=== PATIENT | female | born 1970 | race Caucasian/White ===

== ENCOUNTER 2021-11-24 09:23 | Emergency (ER) | payer MEDICAID ==
[~2021-11-24] VITALS: Ht 170.2 cm; Wt 96.8 kg
[~2021-11-24 09:23] MED LIST: FURO40TA4; INSU100V11 SQ; INSU100V9 SQ; METF-1203 PO; METO50TA16 PO; PANT40TA54 PO; POTA-207 PO; SPIR50TA5 PO
[2021-11-24 10:06] LABS: BASOPHILS % (AUTO) 0.8 % (0-1); EOSINOPHILS # (AUTO) 0.4 X10'3 (0-0.9); EOSINOPHILS % (AUTO) 7.2 % (0-6); HEMATOCRIT 35.6 % (35.0-45.0); HEMOGLOBIN 12.1 g/dl (12.0-16.0); LYMPHOCYTES # (AUTO) 1.1 X10'3 (1.1-4.8); LYMPHOCYTES % (AUTO) 18.4 % (21-51); MEAN CORPUSCULAR HEMOGLOBIN 34.8 PG (27.0-31.0); MEAN CORPUSCULAR VOLUME 102.4 FL (78-98); MEAN PLATELET VOLUME 9.1 FL (7.4-10.4); MONOCYTES # (AUTO) 0.9 X10'3 (0-0.9); MONOCYTES % (AUTO) 14.7 % (2-12); NEUTROPHILS # (AUTO) 3.6 X10'3 (1.8-7.7); NEUTROPHILS % (AUTO) 58.9 % (42-75); PLATELET COUNT 79 X10'3 (140-440); RED BLOOD COUNT 3.47 X10'6 (4.20-5.60)
[2021-11-24 10:26] LABS: ALANINE AMINOTRANSFERASE 55 U/L (12-78); ALBUMIN 2.1 G/DL (3.4-5.0); ALBUMIN/GLOBULIN RATIO 0.4 (1.1-1.5); ALKALINE PHOSPHATASE 168 IU/L (46-116); ANION GAP 10 (8-16); ASPARTATE AMINO TRANSFERASE 48 U/L (10-37); BILIRUBIN,TOTAL 2.8 MG/DL (0.1-1.0); BLOOD UREA NITROGEN 15 MG/DL (7-18); BUN/CREATININE RATIO 12.4 (6.6-38.0); CALCIUM 8.6 MG/DL (8.5-10.1); CHLORIDE 101 MMOL/L (99-107); CREATININE 1.21 MG/DL (0.40-0.90); LIPASE 486 U/L (73-393); POTASSIUM 5.1 MMOL/L (3.5-5.1); SODIUM 130 MMOL/L (135-145); TOTAL CARBON DIOXIDE 19.5 MMOL/L (24-32); TOTAL PROTEIN 7.7 G/DL (6.4-8.2); eGFR 47 ML/MIN
[2021-11-24 10:30] LABS: GLUCOSE 559 MG/DL (70-104)
[2021-11-24] MEDS ORDERED: insulin regular, human 10 units/0.1 ml syringe SQ ONE (11:30)
[2021-11-24] MEDS: LIDOcaine 1% W/epiNEPHrine 1:100,000 20ml vial SQ ONE ×2 (11:40→12:14)
--- NOTE | 2021-11-24 12:18 | NUR ---
Patient is awake alert and orientedsx4. Paracenbtesis in progress with Dr Lund. Vitals remain stable.
--- NOTE | 2021-11-24 12:43 | NUR ---
S/P PARACENTESIS. 5.8L REMOVED. BP 133/73, HR 81
[2021-11-24 12:44] VITALS: BP 133/73
== END 2021-11-24 13:24 | disposition home or self-care (01) ==
LOC: ER 09:23
DX: E11.65 Type 2 diabetes mellitus with hyperglycemia (principal); R18.8 Other ascites; G89.29 Other chronic pain; M54.50 Low back pain, unspecified
CPT/HCPCS: 49083; 80053; 82948; 83690; 85025; 96372; 99285; J1815; J3490

== ENCOUNTER 2021-11-26 21:12 | Emergency (ER) | payer MEDICAID ==
[~2021-11-26] VITALS: Ht 170.2 cm; Wt 96.8 kg
[2021-11-26 21:54] LABS: BASOPHILS # (AUTO) 0.1 X10'3 (0-0.2); BASOPHILS % (AUTO) 0.8 % (0-1); EOSINOPHILS # (AUTO) 0.7 X10'3 (0-0.9); EOSINOPHILS % (AUTO) 9.4 % (0-6); HEMATOCRIT 34.1 % (35.0-45.0); HEMOGLOBIN 11.7 g/dl (12.0-16.0); LYMPHOCYTES # (AUTO) 1.4 X10'3 (1.1-4.8); LYMPHOCYTES % (AUTO) 18.4 % (21-51); MEAN CORPUSCULAR HEMOGLOBIN 34.3 PG (27.0-31.0); MEAN CORPUSCULAR HGB CONC 34.2 g/dL (33.0-36.5); MEAN CORPUSCULAR VOLUME 100.4 FL (78-98); MEAN PLATELET VOLUME 8.6 FL (7.4-10.4); MONOCYTES # (AUTO) 0.8 X10'3 (0-0.9); NEUTROPHILS # (AUTO) 4.6 X10'3 (1.8-7.7); NEUTROPHILS % (AUTO) 60.4 % (42-75); PLATELET COUNT 87 X10'3 (140-440); RED CELL DISTRIBUTION WIDTH 15.6 % (11.5-14.5); WHITE BLOOD COUNT 7.5 X10'3 (4.5-11.0)
[2021-11-26 22:08] LABS: ALANINE AMINOTRANSFERASE 44 U/L (12-78); ALBUMIN 1.9 G/DL (3.4-5.0); ALBUMIN/GLOBULIN RATIO 0.4 (1.1-1.5); ALKALINE PHOSPHATASE 163 IU/L (46-116); ANION GAP 11 (8-16); ASPARTATE AMINO TRANSFERASE 50 U/L (10-37); BILIRUBIN,TOTAL 1.9 MG/DL (0.1-1.0); BLOOD UREA NITROGEN 14 MG/DL (7-18); BUN/CREATININE RATIO 10.7 (6.6-38.0); CALCIUM 8.1 MG/DL (8.5-10.1); CHLORIDE 98 MMOL/L (99-107); CREATININE 1.31 MG/DL (0.40-0.90); LIPASE 481 U/L (73-393); POTASSIUM 4.3 MMOL/L (3.5-5.1); SODIUM 127 MMOL/L (135-145); TOTAL CARBON DIOXIDE 18.5 MMOL/L (24-32); TOTAL PROTEIN 7.3 G/DL (6.4-8.2); eGFR 43 ML/MIN
[2021-11-26 22:19] LABS: GLUCOSE 501 MG/DL (70-104)
[2021-11-26 23:57] VITALS: BP 134/70
[2021-11-27] MEDS ORDERED: insulin regular, human 10 units/0.1 ml syringe SQ ONE (00:05)
[2021-11-27 00:23] LABS: URINE HCG NEGATIVE (NEG)
[2021-11-27 00:40] LABS: UA COLLECTION TYPE CLN CATCH MIDSTREAM
[2021-11-27 00:41] LABS: CLARITY,URINE CLEAR (Clear); COLOR,URINE YELLOW (Yellow); GLUCOSE, URINE >=1000 mg/dl (Neg); KETONES,URINE NEGATIVE (Neg); LEUKOCYTE ESTERASE ,URINE NEGATIVE (Neg); NITRITES, URINE NEGATIVE (Neg); OCCULT BLOOD,URINE TRACE-INTACT (Neg); PH,URINE 5.5 (4.8-8.0); PROTEIN,URINE NEGATIVE (Neg); UROBILINOGEN,URINE 0.2 E.U/dL (0.2-1.0)
[2021-11-27 00:46] LABS: BACTERIA,URINE NONE SEEN /HPF (Neg); SQUAMOUS EPITHELIAL CELL,UR FEW /LPF (FEW); WBC,URINE 0-4 /HPF (0-4)
== END 2021-11-27 01:07 | disposition home or self-care (01) ==
LOC: ER 21:12
DX: R10.11 Right upper quadrant pain (principal); E11.9 Type 2 diabetes mellitus without complications; G89.29 Other chronic pain; M54.50 Low back pain, unspecified
CPT/HCPCS: 36415; 49082; 80053; 81001; 81025; 83690; 85025; 96372; 99285; J1815; 82948

== ENCOUNTER 2021-11-29 02:06 | Inpatient (IN) | payer MEDICAID ==
[~2021-11-29] VITALS: Ht 170.2 cm; Wt 90.9 kg
[2021-11-29] MEDS ORDERED: normal saline 1000ML IV soln IVB ONE (02:10)
[2021-11-29 02:36] LABS: BASOPHILS # (AUTO) 0.1 X10'3 (0-0.2); BASOPHILS % (AUTO) 0.9 % (0-1); EOSINOPHILS # (AUTO) 0.6 X10'3 (0-0.9); HEMATOCRIT 37.3 % (35.0-45.0); HEMOGLOBIN 12.8 g/dl (12.0-16.0); LYMPHOCYTES # (AUTO) 1.9 X10'3 (1.1-4.8); LYMPHOCYTES % (AUTO) 20.4 % (21-51); MEAN CORPUSCULAR HEMOGLOBIN 34.2 PG (27.0-31.0); MEAN CORPUSCULAR HGB CONC 34.2 g/dL (33.0-36.5); MEAN CORPUSCULAR VOLUME 100.1 FL (78-98); MEAN PLATELET VOLUME 8.2 FL (7.4-10.4); MONOCYTES # (AUTO) 0.8 X10'3 (0-0.9); MONOCYTES % (AUTO) 8.6 % (2-12); NEUTROPHILS # (AUTO) 6.1 X10'3 (1.8-7.7); NEUTROPHILS % (AUTO) 64.1 % (42-75); PLATELET COUNT 105 X10'3 (140-440); RED BLOOD COUNT 3.73 X10'6 (4.20-5.60); RED CELL DISTRIBUTION WIDTH 16.2 % (11.5-14.5); WHITE BLOOD COUNT 9.5 X10'3 (4.5-11.0)
[2021-11-29 02:48] LABS: APTT 28 SECONDS (22-32)
[2021-11-29 02:52] LABS: ALANINE AMINOTRANSFERASE 36 U/L (12-78); ALBUMIN/GLOBULIN RATIO 0.4 (1.1-1.5); ALKALINE PHOSPHATASE 178 IU/L (46-116); ANION GAP 10 (8-16); ASPARTATE AMINO TRANSFERASE 34 U/L (10-37); BILIRUBIN,TOTAL 2.2 MG/DL (0.1-1.0); BLOOD UREA NITROGEN 23 MG/DL (7-18); BUN/CREATININE RATIO 9.8 (6.6-38.0); CALCIUM 8.1 MG/DL (8.5-10.1); CHLORIDE 106 MMOL/L (99-107); CREATININE 2.34 MG/DL (0.40-0.90); POTASSIUM 4.6 MMOL/L (3.5-5.1); SODIUM 136 MMOL/L (135-145); TOTAL CARBON DIOXIDE 20.4 MMOL/L (24-32); TOTAL PROTEIN 7.7 G/DL (6.4-8.2); eGFR 22 ML/MIN
[2021-11-29] MEDS ORDERED: lactulose 20gm/30ml cup NG ONE (02:55)
[2021-11-29 02:57] LABS: GLUCOSE 267 MG/DL (70-104)
[2021-11-29 02:58] LABS: CLARITY,URINE SLIGHTLY CLOUDY (Clear); GLUCOSE, URINE 100 mg/dl (Neg); KETONES,URINE 15 mg/dl (Neg); LEUKOCYTE ESTERASE ,URINE MODERATE (Neg); NITRITES, URINE POSITIVE (Neg); OCCULT BLOOD,URINE SMALL (Neg); PH,URINE 5.5 (4.8-8.0); PROTEIN,URINE 30 mg/dl (Neg)
[2021-11-29 02:59] LABS: ETHANOL < 0.010 GM/DL (0.0-0.010)
[2021-11-29 03:01] LABS: COLOR,URINE DARK YELLOW (Yellow); UA COLLECTION TYPE FOLEY CATH
[2021-11-29 03:04] LABS: BACTERIA,URINE 4+ /HPF (Neg); MUCUS STRANDS FEW /LPF (Neg); SQUAMOUS EPITHELIAL CELL,UR FEW /LPF (FEW); WBC,URINE TNTC /HPF (0-4)
[2021-11-29 03:10] LABS: URINE AMPHETAMINE SCREEN NEGATIVE (Neg); URINE BARBITUATE SCREEN NEGATIVE (Neg); URINE BENZODIAZEPINES SCREEN POSITIVE (Neg); URINE CANNABINOID SCREEN NEGATIVE (Neg); URINE COCAINE SCREEN NEGATIVE (Neg); URINE METHADONE SCREEN NEGATIVE (Neg); URINE OPIATE SCREEN POSITIVE (Neg); URINE PHENCYCLIDINE SCREEN NEGATIVE (Neg)
[2021-11-29] MEDS ORDERED: magnesium hydroxide 30ml (MOM) UD suspension PO PRN (03:30)
[2021-11-29] MEDS ORDERED: mag hydrox/Alum hydrox/simeth 30ml oral suspension PO PRN (03:30)
[2021-11-29] MEDS ORDERED: morphine 2 MG/ML inj. syringe IV PRN ×2 (03:30)
[2021-11-29] MEDS ORDERED: ondansetron/PF 4mg/2ml inj IV PRN (03:30)
[2021-11-29] MEDS ORDERED: diphenhydrAMINE 25mg capsule PO PRN (03:30)
[2021-11-29] MEDS ORDERED: diphenhydrAMINE 50 mg/ml inj IV PRN (03:30)
[2021-11-29] MEDS ORDERED: acetaminophen 650mg rectal suppository RC PRN (03:30)
[2021-11-29] MEDS ORDERED: acetaminophen 325mg tablet PO PRN ×2 (03:30)
[2021-11-29] MEDS ORDERED: HYDROcodone/acetaminophen 10/325mg tab PO PRN (03:30)
[2021-11-29] MEDS ORDERED: ondansetron 4mg rapidly disintigrating tab PO PRN (03:30)
[2021-11-29] MEDS ORDERED: HYDROcodone/acetaminophen 5mg/325mg tablet PO PRN (03:30)
[2021-11-29] MEDS ORDERED: bisacodyl 10mg suppository rectal RC PRN (03:30)
[2021-11-29] MEDS ORDERED: normal saline 1000ml 1,000 ML IV SCH (03:30)
[2021-11-29] MEDS ORDERED: glucagon, human recombinant 1mg kit SUBCUT PRN (03:35)
[2021-11-29] MEDS ORDERED: DEXTROSE 15 GM of carb/4 tabs (each vial/BOTTLE has 4 tablets) PO PRN ×2 (03:35)
[2021-11-29] MEDS ORDERED: MESSAGE TO PHARMACY PO ONE (03:35)
[2021-11-29] MEDS ORDERED: dextrose 50%-water 50ml dispensing syringe IV PRN ×2 (03:35)
[2021-11-29] MEDS ORDERED: CefTRIAXone 2gm/D5W 50ml BAG 50 ML IV ONE (03:40)
[2021-11-29 04:02] LABS: LIPASE 394 U/L (73-393); MAGNESIUM 1.5 MG/DL (1.5-2.4); PHOSPHORUS 3.5 MG/DL (2.3-4.5)
[2021-11-29] MEDS ORDERED: SPIR50TA5 PO (05:05)
[2021-11-29] MEDS ORDERED: METF-436 PO (05:07)
[2021-11-29] MEDS ORDERED: POTA-207 PO (05:08)
--- NOTE | 2021-11-29 06:56 | NUR ---
PT RESTING WITH EYES CLOSED RR EQUAL AND UNLABORED. NGT IN PLACE
[2021-11-29] MEDS: pantoprazole 40mg Tablet.DR PO SCH (07:30)
[2021-11-29] MEDS: lactulose 20gm/30ml cup PO SCH ×3 (08:49→21:30)
[2021-11-29] MEDS: docusate sod 100mg capsule PO SCH ×2 (08:49→20:00)
[2021-11-29] MEDS: CefTRIAXone/D5W-Rocephin 1gm 50 ML IV SCH (08:50)
--- NOTE | 2021-11-29 09:02 | NUR ---
LACTULOSE AND COLACE GIVEN VIA NGT. NGT FLUSHED WITH 120ML H2O POST MEDS. PT RESTING WITH SNORRING RESP
[2021-11-29 09:23] LABS: ALBUMIN 1.9 G/DL (3.4-5.0); ANION GAP 10 (8-16); BLOOD UREA NITROGEN 26 MG/DL (7-18); BUN/CREATININE RATIO 11.2 (6.6-38.0); CALCIUM 8.4 MG/DL (8.5-10.1); CHLORIDE 106 MMOL/L (99-107); CREATININE 2.33 MG/DL (0.40-0.90); GLUCOSE 326 MG/DL (70-104); POTASSIUM 4.8 MMOL/L (3.5-5.1); SODIUM 135 MMOL/L (135-145); TOTAL CARBON DIOXIDE 18.7 MMOL/L (24-32); eGFR 22 ML/MIN
--- NOTE | 2021-11-29 12:45 | NUR ---
PT HAD A LARGE LIQUID BM. FULL BED CHANGE AND PT CLEANED UP. PT YELLIN, THRASHING AND ATTEMPTING TO BITE AND FIGHT WITH STAFF WHILE BED CHANGE. PT DOES NOT FOLLOW COMANDS, DOES NOT RESPOND TO HER NAME, PT ATTEMPTING TO PULL OUT NGT. 100ML DARK BROWN URINE IN F/C SO FAR THIS SHIFT, PT WITH NS AT 20/HR. PAGE SENT TO DR HA TO NOTIFY OF LOW URINE OUTPUT AND PTS CONTINUED YELLING AND THRASHING
--- NOTE | 2021-11-29 13:26 | NUR ---
2ND PAGE TO DR HA FOR PT STATUS
--- NOTE | 2021-11-29 13:40 | NUR ---
DR HA AT BS TO EVAL PT. VERBAL ORDER GIVEN TO INCREASE NS TO 75/HR. HE STATES HE DOES NOT WANT TO GIVE ANY SEDATING MEDS, HE SUGGESTED TO PLACE HER IN RESTRAINTS IN INFORMED HIM SHE IS IN BILAT SOFT WRIST RESTRAINTS. HE STATES AGAIN HE DOES NOT WANT TO GIVE HER ANY MEDS HE WOULD RATHER HAVE HER FIGHTING IT MEANS THE LACTULOSE IS WORKING AND DECREASING HER AMMONIA. PT MOVED UP IN BED AND REPOSITIOND
[2021-11-29] MEDS: rifaximin 550mg tablet PO SCH ×2 (14:09→21:30)
[2021-11-29] MEDS: normal saline 1000ml 1,000 ML IV SCH ×8 (15:55→21:00)
--- NOTE | 2021-11-29 17:48 | NUR ---
PT RESTING WITH EYES CLOSED NO DISTRESS NOTED AT THIS TIME
--- NOTE | 2021-11-29 17:48 | NUR ---
300ML DARK BROWN URINE FROM F/C
--- NOTE | 2021-11-29 18:46 | NUR ---
Report given to He SIGALA. Patient to be transported to floor- PCU 3089
[2021-11-29 19:00] VITALS: BP 159/82
[2021-11-29] MEDS ORDERED: temazepam 15mg capsule PO PRN (21:00)
[2021-11-29] MEDS: insulin Lispro (HumaLOG) vial - multi-dose SQ SCH (21:53)
[2021-11-29] MEDS: insulin glargine (Lantus) pen - multi-dose SQ SCH (21:54)
[2021-11-29 22:00] VITALS: BP 142/75
[2021-11-30] MEDS ORDERED: LORazepam 2 mg/ml vial IV PRN (01:40)
[2021-11-30] MEDS ORDERED: LORazepam 1 MG tablet PO PRN (01:40)
[2021-11-30 02:00] VITALS: BP 145/78
[2021-11-30] MEDS: lactulose 20gm/30ml cup PO SCH ×4 (03:51→20:00)
[2021-11-30 06:00] VITALS: BP 144/77
[2021-11-30 06:52] LABS: BASOPHILS # (AUTO) 0.1 X10'3 (0-0.2); BASOPHILS % (AUTO) 0.7 % (0-1); EOSINOPHILS # (AUTO) 0.4 X10'3 (0-0.9); EOSINOPHILS % (AUTO) 5.4 % (0-6); HEMATOCRIT 36.3 % (35.0-45.0); HEMOGLOBIN 12.2 g/dl (12.0-16.0); LYMPHOCYTES # (AUTO) 1.5 X10'3 (1.1-4.8); LYMPHOCYTES % (AUTO) 19.6 % (21-51); MEAN CORPUSCULAR HEMOGLOBIN 34.5 PG (27.0-31.0); MEAN CORPUSCULAR HGB CONC 33.8 g/dL (33.0-36.5); MEAN CORPUSCULAR VOLUME 102.4 FL (78-98); MEAN PLATELET VOLUME 8.4 FL (7.4-10.4); MONOCYTES % (AUTO) 13.4 % (2-12); NEUTROPHILS # (AUTO) 4.5 X10'3 (1.8-7.7); NEUTROPHILS % (AUTO) 60.9 % (42-75); PLATELET COUNT 69 X10'3 (140-440); RED BLOOD COUNT 3.54 X10'6 (4.20-5.60); RED CELL DISTRIBUTION WIDTH 16.6 % (11.5-14.5); WHITE BLOOD COUNT 7.4 X10'3 (4.5-11.0)
[2021-11-30 07:14] LABS: ALANINE AMINOTRANSFERASE 45 U/L (12-78); ALBUMIN/GLOBULIN RATIO 0.4 (1.1-1.5); ALKALINE PHOSPHATASE 147 IU/L (46-116); ANION GAP 16 (8-16); ASPARTATE AMINO TRANSFERASE 59 U/L (10-37); BILIRUBIN,TOTAL 2.9 MG/DL (0.1-1.0); BLOOD UREA NITROGEN 25 MG/DL (7-18); BUN/CREATININE RATIO 14.7 (6.6-38.0); CALCIUM 8.6 MG/DL (8.5-10.1); CHLORIDE 109 MMOL/L (99-107); CHOL/HDL RATIO 3.4 (0.00-4.99); CHOLESTEROL 155 MG/DL (0-200); GLUCOSE 261 MG/DL (70-104); HDL CHOLESTEROL 45 MG/DL (35-60); LDL CHOLESTEROL 90 MG/DL (50-100); POTASSIUM 4.7 MMOL/L (3.5-5.1); SODIUM 144 MMOL/L (135-145); TOTAL CARBON DIOXIDE 18.7 MMOL/L (24-32); TOTAL PROTEIN 7.4 G/DL (6.4-8.2); TRIGLYCERIDES 90 MG/DL (20-135); eGFR 32 ML/MIN
[2021-11-30] MEDS: pantoprazole 40mg Tablet.DR PO SCH (07:30)
[2021-11-30] MEDS: multivitamins, therapeutics tablet PO SCH (08:00)
[2021-11-30] MEDS: CefTRIAXone/D5W-Rocephin 1gm 50 ML IV SCH (08:00)
[2021-11-30] MEDS: rifaximin 550mg tablet PO SCH ×2 (08:00→20:37)
[2021-11-30] MEDS: docusate sod 100mg capsule PO SCH ×2 (08:00→20:00)
[2021-11-30] MEDS: thiamine 100mg tablet PO SCH (08:00)
[2021-11-30] MEDS: folic acid 1mg tablet PO SCH (08:00)
--- NOTE | 2021-11-30 08:26 | NUR ---
Noted pt with a low Jaswinder of 12. Per physical assessment pt with generalized 2+ mild edema and no wounds. Per EMR pt A/O x 1, s/p BSS with ST recs NPO d/t unsafe for PO intake d/t AMS. Noted pt with T2DM, most recent A1c in EMR is 12.5% from 11/09. Pt seen by RD 11/09 at previous admit for written and verbal DM education. RD contact information provided at that time. Pt with EtOH hx, currently receiving routine Thiamine, Folic acid, and MVI. Will continue to follow and make recommendations as appropriate. Addendum: 11/30/21 at [address] Amended: Links added.
[2021-11-30] MEDS: normal saline 1000ml 1,000 ML IV SCH ×2 (10:20→20:46)
[2021-11-30 11:00] VITALS: BP 170/92
--- NOTE | 2021-11-30 14:04 | NUR ---
Sent to Dr. Hernandez: [id number] Myriam: pt is awake and alert and wants to talk to you. She is answering questions appropriately. she wants the NG out. Desiree SIGALA [id number]
--- NOTE | 2021-11-30 14:12 | NUR ---
sent to Dr. Hernandez: [id number] Myriam: Pt wants to leave AMA. She is getting angry and wants to leave now.
--- NOTE | 2021-11-30 15:15 | NUR ---
pt released herself from the wrist restraint and pulled her NG tube out. Notified .
--- NOTE | 2021-11-30 15:54 | NUR ---
To Dr Hernandez: [id number] Myriam: Pt refusing to take medications. pt pulled NG out and is being combative. I have not given Ativan per your request. she wants to go ama. Could you please see the pt. thank you.
--- NOTE | 2021-11-30 17:00 | NUR ---
spoke to Dr. Hernandez and relayed the pt's wishes to go home. Dr. Hernandez stated to have her walk to the br and see how she did. If she can ambulate to the bathroom, then he will discharge her. Ambulated pt to the bathroom where she had a large bowel movement. pt is now lying in the bed talking to her roommate to get a ride. Will continue to monitor.
[2021-11-30 19:00] VITALS: BP 150/85
[2021-11-30] MEDS: insulin Lispro (HumaLOG) vial - multi-dose SQ SCH ×2 (19:11→21:18)
[2021-11-30] MEDS: insulin glargine (Lantus) pen - multi-dose SQ SCH (21:19)
[2021-11-30 22:00] VITALS: BP 154/80
[2021-12-01 02:00] VITALS: BP 145/78
[2021-12-01] MEDS: lactulose 20gm/30ml cup PO SCH ×3 (02:00→14:47)
[2021-12-01 06:00] VITALS: BP 173/85
--- NOTE | 2021-12-01 06:56 | NUR ---
Problems reprioritized. Patient report given, questions answered & plan of care reviewed with JONEL. Addendum: 12/01/21 at 0656 by Bertrand Bagley RN Amended: Links added.
--- NOTE | 2021-12-01 06:58 | NUR ---
Patient in room PCU 3027. I have received report from Huma RN and had the opportunity to ask questions and assume patient care.
[2021-12-01 08:34] LABS: BASOPHILS # (AUTO) 0.1 X10'3 (0-0.2); BASOPHILS % (AUTO) 0.7 % (0-1); EOSINOPHILS # (AUTO) 0.3 X10'3 (0-0.9); EOSINOPHILS % (AUTO) 3.5 % (0-6); HEMATOCRIT 35.4 % (35.0-45.0); HEMOGLOBIN 11.8 g/dl (12.0-16.0); LYMPHOCYTES # (AUTO) 1.4 X10'3 (1.1-4.8); LYMPHOCYTES % (AUTO) 18.5 % (21-51); MEAN CORPUSCULAR HEMOGLOBIN 34.3 PG (27.0-31.0); MEAN CORPUSCULAR HGB CONC 33.4 g/dL (33.0-36.5); MEAN CORPUSCULAR VOLUME 102.6 FL (78-98); MEAN PLATELET VOLUME 8.2 FL (7.4-10.4); MONOCYTES # (AUTO) 0.7 X10'3 (0-0.9); MONOCYTES % (AUTO) 10.2 % (2-12); NEUTROPHILS # (AUTO) 4.9 X10'3 (1.8-7.7); NEUTROPHILS % (AUTO) 67.1 % (42-75); PLATELET COUNT 67 X10'3 (140-440); RED BLOOD COUNT 3.45 X10'6 (4.20-5.60); RED CELL DISTRIBUTION WIDTH 16.2 % (11.5-14.5); WHITE BLOOD COUNT 7.3 X10'3 (4.5-11.0)
[2021-12-01 08:46] LABS: ALANINE AMINOTRANSFERASE 45 U/L (12-78); ALBUMIN 1.9 G/DL (3.4-5.0); ALBUMIN/GLOBULIN RATIO 0.4 (1.1-1.5); ALKALINE PHOSPHATASE 147 IU/L (46-116); ANION GAP 10 (8-16); ASPARTATE AMINO TRANSFERASE 54 U/L (10-37); BILIRUBIN,TOTAL 2.5 MG/DL (0.1-1.0); BLOOD UREA NITROGEN 20 MG/DL (7-18); BUN/CREATININE RATIO 17.1 (6.6-38.0); CALCIUM 8.4 MG/DL (8.5-10.1); CHLORIDE 106 MMOL/L (99-107); CREATININE 1.17 MG/DL (0.40-0.90); GLUCOSE 387 MG/DL (70-104); POTASSIUM 4.1 MMOL/L (3.5-5.1); SODIUM 135 MMOL/L (135-145); TOTAL CARBON DIOXIDE 18.9 MMOL/L (24-32); TOTAL PROTEIN 7.1 G/DL (6.4-8.2); eGFR 49 ML/MIN
[2021-12-01] MEDS ORDERED: SULF1TAB49 PO (08:47)
[2021-12-01] MEDS ORDERED: LACT10SO3 PO (08:49)
[2021-12-01] MEDS: pantoprazole 40mg Tablet.DR PO SCH (10:11)
[2021-12-01] MEDS: multivitamins, therapeutics tablet PO SCH (10:11)
[2021-12-01] MEDS: CefTRIAXone/D5W-Rocephin 1gm 50 ML IV SCH (10:11)
[2021-12-01] MEDS: thiamine 100mg tablet PO SCH (10:11)
[2021-12-01] MEDS: rifaximin 550mg tablet PO SCH (10:11)
[2021-12-01] MEDS: folic acid 1mg tablet PO SCH (10:12)
[2021-12-01] MEDS: docusate sod 100mg capsule PO SCH (10:12)
[2021-12-01] MEDS: insulin Lispro (HumaLOG) vial - multi-dose SQ SCH ×2 (10:20→14:46)
[2021-12-01] MEDS ORDERED: LIDOcaine 1%/PF 5ML 10 MG/ML VIAL ONE (12:55)
[2021-12-01 13:15] VITALS: BP 142/96
[2021-12-01 13:46] VITALS: BP 158/81
--- NOTE | 2021-12-01 14:35 | NUR ---
Paged Dr. Hernandez asking if patient is ok for discharge. PAGER ID: [phone] MESSAGE: [id number], Myriam Jansen. Pt received the para, they removed 4.3L. Would you like to move forward with the discharge? Eva U 4094.
--- NOTE | 2021-12-01 15:46 | NUR ---
Paged Dr. Hernandez regarding patients BP that is 178/96. Her med rec was not addressed and she normally takes BP meds at home. PAGER ID: [phone] MESSAGE: [email or web address], Myriam Jansen. Pts BP has been rising, it is 178/96 map (134). Her med rec was never addressed and she takes BP meds at home. Would like BP addressed before discharge. Eva [facility] 1074.
--- NOTE | 2021-12-01 19:09 | NUR ---
Patient stable for discharge per Dr. Hernandez. All discharge instructions reviewed with patient and all questions answered. Patient verbalized understanding. New prescriptions e scripted to demetri [facility]. Pt had no personal belongings. Wheeled to lobby via nursing staff and picked up by family.
[2021-12-01] MEDS ORDERED: nystatin 15 GM powder TP SCH (20:00)
== END 2021-12-01 17:25 | disposition home or self-care (01) | DRG 279 ==
LOC: ER 02:07 → ED HOLD 03:31 → EDBEDREQ 18:29 → PCU 3S 19:00
PROVIDERS: ADMIT Family Medicine; ATTEND Internal Medicine
PROC: 0W9G3ZZ Drainage of Peritoneal Cavity, Percutaneous Approach (ICD-10-PCS; principal; 2021-12-01)
DX: K72.90 Hepatic failure, unspecified without coma (principal); N17.9 Acute kidney failure, unspecified; E87.2 Acidosis; D69.6 Thrombocytopenia, unspecified; E86.0 Dehydration; E11.22 Type 2 diabetes mellitus with diabetic chronic kidney disease; K70.31 Alcoholic cirrhosis of liver with ascites; E11.65 Type 2 diabetes mellitus with hyperglycemia; F10.10 Alcohol abuse, uncomplicated; G89.29 Other chronic pain; F17.210 Nicotine dependence, cigarettes, uncomplicated; M54.9 Dorsalgia, unspecified; N18.9 Chronic kidney disease, unspecified; N39.0 Urinary tract infection, site not specified; Z78.1 Physical restraint status; Z91.19 Patient's noncompliance with other medical treatment and regimen; Z79.4 Long term (current) use of insulin; Z79.899 Other long term (current) drug therapy
CPT/HCPCS: 36415; 49083; 70450; 71045; 80048; 80053; 80061; 80305; 80320; 81001; 82140; 82948; 83605; 83690; 83735; 83880; 84100; 84443; 85025; 85610; 85730; 87040; 87088; 92508; 92616; 93005; 96360; 97162; 99291; A6212; C1758; G0378; J0696; J1200; J1815; J2270; J3490; J7030; J7040

== ENCOUNTER 2021-12-16 06:21 | Day surgery (SDC) | payer MEDICAID ==
[~2021-12-16] VITALS: Ht 167.6 cm; Wt 111.6 kg
[2021-12-16] VITALS (7 sets, daily range): BP systolic 123–138; BP diastolic 65–90
[~2021-12-16 06:21] MED LIST changes: +LACT10SO3 PO; -METF-1203 PO; +SULF1TAB49 PO
[2021-12-16] MEDS ORDERED: METF-900 PO (06:43)
[2021-12-16] MEDS ORDERED: albumin 25% 100mL bottle x 1 IV PRN (06:45)
[2021-12-16] MEDS ORDERED: LIDOcaine 1% 30ml preserv. free vial SQ STA (07:07)
== END 2021-12-16 10:05 | disposition home or self-care (01) ==
LOC: SSTAY O 06:21
PROVIDERS: ATTEND Preventive Medicine Aerospace Medicine
DX: R18.8 Other ascites (principal); K74.60 Unspecified cirrhosis of liver; Z79.899 Other long term (current) drug therapy; E11.9 Type 2 diabetes mellitus without complications; F32.9 Major depressive disorder, single episode, unspecified; Z87.891 Personal history of nicotine dependence; G89.29 Other chronic pain; F15.90 Other stimulant use, unspecified, uncomplicated; Z98.890 Other specified postprocedural states; Z79.4 Long term (current) use of insulin
CPT/HCPCS: 49083; 82948; J3490; P9047; A6258; A6449